=== PATIENT | female | born 1995 | race Asian ===

== ENCOUNTER 2021-11-15 09:47 | Inpatient (IN) ==
[~2021-11-15 09:47] MED LIST: Lidocaine 1% VIAL 10 MG/ML VIAL ONE
[2021-11-15] MEDS ORDERED: Lactated Ringers 1000 ml BAG 1,000 ML IV ONE (10:33)
[2021-11-15 11:43] LABS: Urine Benzodiazepine Screen None Detected (None Detect); Urine Cannabinoids Screen None Detected (None Detect); Urine Opiates Screen None Detected (None Detect)
[2021-11-16 06:49] LABS: ABS Lymphocytes 2.2 10^3/ul (1.0-4.8); ABS Monocytes 0.6 10^3/ul (0-0.8); ABS Neutrophils 6.3 10^3/ul (1.5-7.7); Eosinophil % 0.5 %; Hematocrit 34 % (35-47); Hemoglobin 11.4 g/dL (12.0-16.0); Lymphocyte % 24.2 %; Mean Corpuscular HGB Conc 33 g/dL (31-36); Mean Corpuscular Hemoglobin 30 pg (27-31); Mean Corpuscular Volume 89 fL (80-97); Mean Platelet Volume 8.3 fL (7.4-10.4); Platelet Count 304 10^3/uL (150-450); Red Blood Count 3.83 10^6 /uL (3.70-4.87); Red Cell Distribution Width 14 % (10-15); White Blood Count 9.1 10^3/uL (3.5-10.8)
[2021-11-16] MEDS: Oxytocin in LR 20 UNITS/1,000 ML BAG IVPB SCH (07:27)
[2021-11-16] MEDS ORDERED: Lactated Ringers 1000 ml BAG 1,000 ML IV SCH ×2 (08:00→22:00)
[2021-11-16] MEDS ORDERED: Promethazine INJ(RESTRICTED) 25 MG/ML 1 ml VIAL IV ONE (16:32)
[2021-11-16] MEDS ORDERED: Nalbuphine 10 MG/ML 1 ML VIAL IV ONE (16:32)
[2021-11-16] MEDS ORDERED: Promethazine INJ(RESTRICTED) 25 MG/ML 1 ml VIAL ONE (16:36)
[2021-11-16] MEDS ORDERED: Nalbuphine 10 MG/ML 1 ML VIAL ONE (16:36)
[2021-11-16] MEDS ORDERED: OBEPIDURAL 250 ML EPIDURAL ONE (21:14)
[2021-11-16] MEDS ORDERED: Phenylephrine 40 mcg/mL 10mL (400mcg) SYRINGE IV PUSH PRN ×2 (21:59)
[2021-11-16] MEDS ORDERED: Lactated Ringers 1000 ml BAG 1,000 ML IV ONE (21:59)
[2021-11-16] MEDS ORDERED: Sodium Citrate/Citric Acid LIQ 15 ML UDC PO PRN (21:59)
[2021-11-16] MEDS ORDERED: OBEPIDURAL 250 ML EPIDURAL SCH (22:00)
[2021-11-17] MEDS ORDERED: Bupivacaine 0.25% SDV PF 10 ML VIAL INJ ONE (03:16)
[2021-11-17] MEDS: Ampicillin ADVAN 2 GM in NS 0.9% 100 ml BAG 100 ML IVPB SCH ×2 (06:28→13:06)
[2021-11-17] MEDS ORDERED: Gentamicin ADULT 285 MG in NS 0.9% 100 ml BAG 100 ML IVPB SCH (07:00)
[2021-11-17] MEDS: Oxytocin in LR 20 UNITS/1,000 ML BAG IVPB SCH (09:17)
[2021-11-17] MEDS ORDERED: Dibucaine 1% OINT 28.35 GM TUBE ONE (09:55)
[2021-11-17] MEDS ORDERED: Ammonia Inhalant 1 EA AMP ONE (09:55)
[2021-11-17] MEDS ORDERED: Witch Hazel PAD JAR ONE (09:55)
[2021-11-17] MEDS ORDERED: Glycerin ADULT 2.4 gm SUPP PR PRN (10:12)
[2021-11-17] MEDS ORDERED: Dibucaine 1% OINT 28.35 GM TUBE PR PRN (10:12)
[2021-11-17] MEDS: Witch Hazel PAD JAR TOPICAL PRN ×2 (10:31→21:11)
[2021-11-17] MEDS ORDERED: Lactated Ringers 1000 ml BAG 1,000 ML IV SCH (11:00)
[2021-11-17] MEDS ORDERED: Oxytocin in LR 20 UNITS/1,000 ML BAG IVPB SCH (11:00)
[2021-11-17] MEDS ORDERED: Lidocaine 1% VIAL 10 MG/ML VIAL ONE (13:02)
[2021-11-18 07:30] LABS: ABS Eosinophils 0.1 10^3/ul (0-0.6); ABS Lymphocytes 2.4 10^3/ul (1.0-4.8); ABS Monocytes 0.7 10^3/ul (0-0.8); ABS Neutrophils 10.2 10^3/ul (1.5-7.7); Eosinophil % 0.8 %; Hematocrit 27 % (35-47); Mean Corpuscular HGB Conc 34 g/dL (31-36); Mean Corpuscular Hemoglobin 30 pg (27-31); Mean Corpuscular Volume 89 fL (80-97); Mean Platelet Volume 7.9 fL (7.4-10.4); Platelet Count 191 10^3/uL (150-450); Red Cell Distribution Width 14 % (10-15); White Blood Count 13.5 10^3/uL (3.5-10.8)
[2021-11-19 08:20] VITALS: BP 98/58
== END 2021-11-19 14:36 | disposition home or self-care (01) | DRG 560 ==
LOC: MCHOBOUT 09:47 → MCHOB 10:19
PROVIDERS: ADMIT Midwife; ATTEND Obstetrics & Gynecology